=== PATIENT | male | born 1955 | race Caucasian/White ===

== ENCOUNTER → 2024-06-20 | Day surgery (SDC) | payer MEDICARE, MEDICAID ==
[2024-06-13 10:22] LABS: BASOPHILS # (AUTO) 0.1 X10'3 (0-0.2); BASOPHILS % (AUTO) 0.7 % (0-1); EOSINOPHILS # (AUTO) 0.1 X10'3 (0-0.9); EOSINOPHILS % (AUTO) 1.2 % (0-6); LYMPHOCYTES # (AUTO) 1.6 X10'3 (1.1-4.8); LYMPHOCYTES % (AUTO) 19.7 % (21-51); MEAN CORPUSCULAR HEMOGLOBIN 33.6 PG (27.0-31.0); MEAN CORPUSCULAR HGB CONC 35.3 g/dL (33.0-36.5); MEAN CORPUSCULAR VOLUME 95.3 FL (78-98); MONOCYTES # (AUTO) 0.5 X10'3 (0-0.9); NEUTROPHILS % (AUTO) 72.4 % (42-75); PRE OP HEMATOCRIT 46.9 % (42.0-52.0); PRE OP HEMOGLOBIN 16.6 g/dL (14.0-17.9); PRE OP PLATELET COUNT 140 X10'3 (140-440); PRE OP WHITE BLOOD COUNT 8.4 10'3 (4.8-10.8); RED BLOOD COUNT 4.92 X10'6 (4.70-6.10); RED CELL DISTRIBUTION WIDTH 13.5 % (11.5-14.5)
[2024-06-13 10:39] LABS: ALBUMIN 4.1 G/DL (3.4-5.0); ALBUMIN/GLOBULIN RATIO 1.4 (1.1-1.5); ALKALINE PHOSPHATASE 111 IU/L (46-116); BLOOD UREA NITROGEN 9 MG/DL (7-18); BUN/CREATININE RATIO 13.8 (10.0-20.0); CALCIUM 9.2 MG/DL (8.5-10.1); CHLORIDE 101 MMOL/L (99-107); CREATININE 0.65 MG/DL (0.60-1.10); PRE OP ALT 45 U/L (30-65); PRE OP ANION GAP 6 (8-16); PRE OP AST 20 U/L (10-37); PRE OP BILIRUB, TOTAL 0.8 MG/DL (0.0-1.0); PRE OP GLUCOSE 88 MG/DL (70-104); PRE OP POTASSIUM 3.5 MMOL/L (3.4-5.1); PRE OP SODIUM 141 MMOL/L (135-145); TOTAL CARBON DIOXIDE 34.3 MMOL/L (24-32); TOTAL PROTEIN 7.1 G/DL (6.4-8.2); eGFR > 90 ML/MIN
[~2024-06-20] VITALS: Ht 172.7 cm; Wt 72.5 kg
[2024-06-20] VITALS (14 sets, daily range): BP systolic 126–158; BP diastolic 60–95; PULSE 59–79; RESP 10–16; TEMP 97.7; O2SAT 93–98
[~2024-06-20] MED LIST: ALBU18HF2 PO; ATOR10TA70 PO; BUPIVAcaine 2.5mg/ml inj 50ml vial (contains preservative) ONE; FLUT16SP BOTHNARES; FLUT1BLS4 INH; GABA-338 PO; HYDR-3973 PO; HYDR12.55 PO; IPRA30SP; LIDOcaine 1% 30ml preserv. free vial ONE; LIDOcaine 1%/PF 5ML 10 MG/ML VIAL ONE; METO-384 PO; VITAMIN B12; VITAMIN D3; acetaminophen 1,000mg/100ml IV 100 ML IV ONE; dexamethasone sod phosphate 4mg/ml inj. ONE; enalaprilat 1.25mg/ml 2ml vial IV PRN; fentaNYL/PF 50MCG/1 ML 2ML syringe ONE; glycopyrrolate 0.2mg/ml inj ONE; hydrALAZINE 20mg/ml inj. IV PRN; meperidine/PF 25mg/ml syringe IV PRN; midazolam 1 mg/ML 2ml injection ONE; morphine 2 MG/ML inj. syringe IV PRN; neostigmine methylsulfate 1 MG/ML 10ml vial ONE; ondansetron/PF 4mg/2ml inj IV PRN; ondansetron/PF 4mg/2ml inj ONE; oxyCODONE/APAP 5-325mg tablet PO PRN; propofol inj 20 ML IV ONE; ringers solution, lacted 1,000 ML IV SCH; rocuronium 10mg/ml inj IV ONE; sevoflurane 250ml liquid IH ONE
[2024-06-20] MEDS: ceFAZolin 2gm in dextrose, iso 50 ML IV ONE (05:46)
[2024-06-20] MEDS: DOCUMENT DATE & TIME OF BETA-BLOCKER PO ONE (06:00)
[2024-06-20] MEDS: ringers solution, lacted 1,000 ML IV SCH (06:00)
[2024-06-20] MEDS: famotidine 20mg tablet PO ONE (06:00)
[2024-06-20] MEDS: BUPIVAcaine/PF 2.5 mg/ml (0.25%) 30ml vial IJ ONE (07:54)
[2024-06-20] MEDS: morphine 4 MG/ML inj SYRINge IV PRN (08:58)
== END | disposition home or self-care (01) ==
LOC: PAS 05:18
PROVIDERS: ATTEND Surgery
DX: K42.9 Umbilical hernia without obstruction or gangrene (principal); K40.91 Unilateral inguinal hernia, without obstruction or gangrene, recurrent; J44.9 Chronic obstructive pulmonary disease, unspecified; I10 Essential (primary) hypertension; Z98.890 Other specified postprocedural states; Z79.899 Other long term (current) drug therapy; Z95.0 Presence of cardiac pacemaker; Z87.891 Personal history of nicotine dependence
CPT/HCPCS: 36415; 49591; 49651; 80053; 82948; 85025; 93005; A4215; A4618; C1781; J0131; J0690; J1100; J2003; J2250; J2270; J2405; J2704; J2710; J3010; J3490; J7030; J7120; Z7506; Z7508; Z7512; Z7610